=== PATIENT | male | born 1960 | race Two or more races ===

== ENCOUNTER → 2024-12-26 | Outpatient (CLI) | payer OTHER, BC ==
[~2024-12-26] MED LIST: PROHANCE 279.3MG/ML 15ML VIAL As Ordered ONE; PROHANCE 279.3MG/ML 5ML VIAL As Ordered ONE
== END ==
LOC: M RAD 12:58
PROVIDERS: ATTEND Physician Assistant
DX: R97.20 Elevated prostate specific antigen [PSA] (principal)
CPT/HCPCS: 72197; A9576

== ENCOUNTER → 2024-12-26 | Outpatient (CLI) | payer OTHER, BC | LOC: M RAD 13:02 | PROVIDERS: ATTEND Physician Assistant | DX: R91.8 Other nonspecific abnormal finding of lung field (principal) ==